=== PATIENT | male | born 1980 | race Caucasian/White ===

== ENCOUNTER 2021-03-06 16:49 | Outpatient (CLI) | payer BC ==
--- NOTE | 2021-03-07 11:10 | XRAY Report ---
PROCEDURE: Knee 3 View LT INDICATIONS: L KNEE PX TECHNIQUE: 3 views of the left knee(s) were acquired. COMPARISON: None. FINDINGS: Bones: No fractures or dislocations. No suspicious bony lesions. Soft tissues: No joint effusion. No suspicious soft tissue calcifications. IMPRESSION: Normal left knee Reviewed by: Manan Mittal on 03/07/2021 11:08 AM PDT Approved by: Manan Mittal on 03/07/2021 11:08 AM PDT Station ID: [id number]
== END 2021-03-06 23:59 | disposition home or self-care (01) ==
LOC: DI.N 16:49
PROVIDERS: ATTEND Physician Assistant Medical
DX: M25.562 Pain in left knee (principal)

== ENCOUNTER 2021-05-03 10:01 | Outpatient (CLI) | payer OTHER ==
--- NOTE | 2021-05-03 16:42 | XRAY Report ---
PROCEDURE: Foot 3 View LT INDICATIONS: LEFT FOOT PAIN TECHNIQUE: 3 views of the foot were acquired. COMPARISON: None FINDINGS: Bones: No fractures or dislocations. No suspicious bony lesions. Mild first MTP degenerative ibarra e. Soft tissues: No tibiotalar joint effusion. Achilles tendon appears normal. IMPRESSION: Mild first MTP degenerative change. No evidence acute bony abnormality of the left foot. If clinical suspicion and/or symptoms persist, further assessment with repeat plain films or advanced imaging (e.g., CT, MRI, or bone scan) may be helpful for further assessment. Reviewed by: Blair Hughes MD on 05/03/2021 4:41 PM PDT Approved by: Blair Hughes MD on 05/03/2021 4:41 PM PDT Station ID: [id number]
== END 2021-05-03 10:02 | disposition home or self-care (01) ==
LOC: DI.N 10:01
PROVIDERS: ATTEND Physician Assistant
DX: M19.072 Primary osteoarthritis, left ankle and foot (principal)

== ENCOUNTER 2022-11-28 10:54 | Emergency (ER) | payer OTHER ==
[2022-11-28 11:23] VITALS: BP 166/115
--- OUTSIDE RECORDS SUMMARY | 2022-11-28 12:05 | EXTERNAL MEDICAL SUMMARY RPT | Continuity of Care Document ---
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 Name Role Phone Unavailable Unavailable Unavailable Lionel Sotelo, Jinny Unavailable Unavailable Medications date description facility 2022-11-27 00:00 sertraline All 2022-11-28 00:00 sertraline All 2022-11-27 00:00 sertraline All 2022-11-28 00:00 sertraline All 2022-11-27 00:00 losartan All 2022-11-28 00:00 losartan All 2022-11-27 00:00 losartan All 2022-11-28 00:00 losartan All 2022-11-27 00:00 sertraline All 2022-11-28 00:00 sertraline All 2022-11-27 00:00 sertraline All 2022-11-28 00:00 sertraline All 2022-11-27 00:00 losartan All 2022-11-28 00:00 losartan All 2022-11-27 00:00 losartan All 2022-11-28 00:00 losartan All Problems date description facility 2022-11-27 00:00 Insomnia All 2022-11-27 00:00 Insomnia, unspecified All Procedures date description facility 2022-11-27 00:00 Visit Code Hold All Vital Signs date measurement value units 2022-11-27 00:00 BMI 21.51 kg/m2 2022-11-27 00:00 BP_diastolic 112 mmHg 2022-11-27 00:00 BP_systolic 164 mmHg 2022-11-27 00:00 heart_rate 101 /min 2022-11-27 00:00 height_metric 163.83 cm 2022-11-27 00:00 height_standard 64.5 in 2022-11-27 00:00 respiration_rate 18 /min 2022-11-27 00:00 temperature_metric 37.17 C 2022-11-27 00:00 temperature_standard 98.9 F 2022-11-27 00:00 weight_metric 57.52 kg 2022-11-27 00:00 weight_standard 126.8 lb
[2022-11-28] MEDS ORDERED: LORazepam 1 MG TABLET PO STA (13:33)
--- NOTE | 2022-11-28 13:33 | ED Physician Documentation ---
History of Present Illness - Stated complaint Stated Complaint: ETOH WITHDRAW - Chief complaint Chief Complaint: General - History obtained from History obtained from: Patient, Family - Additonal information Additional information: 42-year-old gentleman presents accompanied by his mother for help with alcohol withdrawal. He was drinking heavily and got fired from his job, this was about a month ago. Subsequently he went home to the [facility] where he was drinking even more heavily. His mom got worried about it and brought him back about 3 days ago which was when his last drink was. Since then he is unable to sleep and having some tactile hallucinations. No seizure activity. While he was in the [facility] he was put on multivitamins and sertraline by a physician there. 2 days ago he missed a dose of sertraline and then took a second 1. No SI or HI. PD PAST MEDICAL HISTORY - Present Medications Home Medications: Ambulatory Orders Medication Instructions Recorded Confirmed LORazepam [Ativan] 1 mg PO TID #12 tablet 11/28/22 - Allergies Allergies/Adverse Reactions: Allergies Allergy/AdvReac Type Severity Reaction Status Date / Time No Known Drug Allergies Allergy Verified 11/28/22 11:21 PD ED PE NORMAL - Vitals Vital signs reviewed: Yes - General General: Alert and oriented X 3, Other (Hypertensive with mild tachycardia. Not overtly shaky. Calm and cooperative.) - HEENT HEENT: PERRL, EOMI, Other (Without icterus) - Cardiac Cardiac: RRR, No murmur - Respiratory Respiratory: No respiratory distress, Clear bilaterally - Abdomen Abdomen: Non tender - Back Back: No CVA TTP, No spinal TTP - Derm Derm: Normal color, Warm and dry - Extremities Extremities: No edema, No calf tenderness / cord - Neuro Neuro: Alert and oriented X 3, Normal speech Results - Vitals Vitals: Vital Signs - 24 hr 11/28/22 11:11 Temperature 36.9 C Heart Rate 107 H Respiratory 18 Rate Blood Pressure 166/115 H O2 Saturation 98 Oxygen O2 Source Room air PD Medical Decision Making - ED course ED course: 42-year-old gentleman presents with alcohol withdrawal with some tactile hallucinations and no seizure activity. His examination is otherwise unremarkable and he is accompanied by his mother. We will treat with a benzodiazepine taper. Departure - Departure Disposition: 01 Home, Self Care Clinical Impression: Alcohol withdrawal Condition: Good Record reviewed to determine appropriate education?: Yes Instructions: ED Withdrawal Alcohol Prescriptions: LORazepam [Ativan] 1 mg PO TID #12 tablet Comments: I sent your prescription electronically to [facility] in [place]. Do not drink or drive while on the medications, do not drink at all. Call your doctor to arrange a follow-up appointment, make the next available appointment. In the interim, return anytime if worse or if new symptoms develop. Forms: Activity restrictions
== END 2022-11-28 13:40 | disposition home or self-care (01) ==
LOC: ED 10:54
DX: F10.239 Alcohol dependence with withdrawal, unspecified (principal)
CPT/HCPCS: 99285; 99291; J8499

== ENCOUNTER 2022-11-28 23:10 | Outpatient (CLI) | payer SELFPAY | END 2022-11-28 23:11 | disposition critical access hospital (66) | LOC: EMS 23:10 | DX: R46.89 Other symptoms and signs involving appearance and behavior (principal); R41.0 Disorientation, unspecified; Z72.820 Sleep deprivation | CPT/HCPCS: A0425; A0429 ==

== ENCOUNTER 2022-11-28 23:27 | Inpatient (IN) | payer SELFPAY ==
--- OUTSIDE RECORDS SUMMARY | 2022-11-28 23:38 | EXTERNAL MEDICAL SUMMARY RPT | Continuity of Care Document ---
Author Name Unknown Address [address] [place] [address] Phone Organization [facility] Address [address] [place] [address] Phone Care Team Providers Care Field Health Officer Name Role Phone Unavailable Unavailable Unavailable Lionel [...]
[2022-11-29 00:04] LABS: BASOPHILS % (AUTO) 0.6 %; EOSINOPHILS # (AUTO) 0.2 10^3/uL (0.0-0.7); EOSINOPHILS % (AUTO) 3.6 %; HCT - HEMATOCRIT 36.5 % (42.0-52.0); HGB - HEMOGLOBIN 12.1 g/dL (14.0-18.0); LYMPHOCYTES # (AUTO) 1.6 10^3/uL (1.5-3.5); LYMPHOCYTES % (AUTO) 32.7 %; MEAN CORPUSCULAR HEMOGLOBIN 32.9 pg (27.0-31.0); MEAN CORPUSCULAR HGB CONC 33.2 g/dL (32.0-36.0); MEAN CORPUSCULAR VOLUME 99.2 fL (80.0-94.0); MONOCYTES # (AUTO) 0.7 10^3/uL (0.0-1.0); MONOCYTES % (AUTO) 13.8 %; NEUTROPHILS # (AUTO) 2.4 10^3/uL (1.5-6.6); NEUTROPHILS % (AUTO) 48.9 %; PLT - PLATELET COUNT 144 10^3/uL (130-450); RED BLOOD COUNT 3.68 10^6/uL (4.70-6.10); RED CELL DISTRIBUTION WIDTH 13.5 % (12.0-15.0)
[2022-11-29] MEDS ORDERED: LORazepam 2 MG/ML VIAL IVP STA ×3 (00:04→00:41)
[2022-11-29] MEDS ORDERED: THIAMINE 100 MG TABLET PO STA (00:06)
[2022-11-29] MEDS ORDERED: FOLIC ACID 1 MG TABLET PO STA (00:07)
[2022-11-29] MEDS ORDERED: MULTIVITAMIN TABLET PO STA (00:08)
[2022-11-29 00:19] LABS: ALBUMIN 3.8 g/dL (3.2-5.5); ALBUMIN/GLOBULIN RATIO 1.1 (1.0-2.2); ALKALINE PHOSPHATASE 67 IU/L (42-121); ALT ALANINE AMINOTRANSFERASE 21 IU/L (10-60); AST ASPARTATE AMINOTRANSFERASE 60 IU/L (10-42); BILIRUBIN,TOTAL 0.4 mg/dL (0.2-1.0); BUN - BLOOD UREA NITROGEN 15 mg/dL (6-20); CALCIUM 8.9 mg/dL (8.5-10.3); CARBON DIOXIDE - CO2 26 mmol/L (21-32); CHLORIDE 101 mmol/L (101-111); ETOH - ETHANOL < 5.0 mg/dL; GFR - MDRD 81 (>89); GLUCOSE 119 mg/dL (70-100); LIPASE 69 U/L (22-51); POTASSIUM 3.3 mmol/L (3.5-5.0); SODIUM 139 mmol/L (135-145); TOTAL PROTEIN 7.3 g/dL (6.7-8.2)
[2022-11-29] MEDS ORDERED: POTASSIUM CHLORIDE 20 MEQ TABLET PO STA (00:20)
--- NOTE | 2022-11-29 00:22 | ED Physician Documentation ---
History of Present Illness - Stated complaint Stated Complaint: UNABLE TO SLEEP - Chief complaint Chief Complaint: Neuro - History obtained from History obtained from: Family (Mother) - Additonal information Additional information: Patient is a 42-year-old male brought in by EMS for evaluation of worsening hallucinations this evening. He was seen earlier this afternoon by my colleague for alcohol withdrawal. He has been drinking heavily And was in the [facility]. His mother was worried about him and brought him back 3 days ago and she believes his last drink was on Thursday.Since that time he has been having difficulties with sleep as well as having some tactile hallucinations.While in the [facility] he was started on sertraline by a physician and excellently took An extra dose this week.He was also started on multivitamins. When he was seen this afternoon he was started on a p.o. Ativan and was reportedly stable for outpatient management of his withdrawal symptoms. However this evening the mother states that his hallucinations have been worse as he keeps talking to himself and is confused.She has given him additional doses of p.o. Ativan without any change in behaviors and thus called 911. Upon arrival with EMS he ambulated from the ambulance bay door into room 8. Review of Systems Unable to obtain: AMS PD PAST MEDICAL HISTORY - Present Medications Home Medications: Ambulatory Orders Medication Instructions Recorded Confirmed LORazepam [Ativan] 1 mg PO TID #12 tablet 11/28/22 11/28/22 - Allergies Allergies/Adverse Reactions: Allergies Allergy/AdvReac Type Severity Reaction Status Date / Time No Known Drug Allergies Allergy Verified 11/28/22 11:21 - Social History Does the pt smoke?: Yes Smoking Status: Current every day smoker PD ED PE NORMAL - General General: No acute distress, Well developed/nourished. No: Alert and oriented X 3 (Alert and oriented to person and time) - HEENT HEENT: Atraumatic - Neck Neck: Supple, no meningeal sign - Cardiac Cardiac: No murmur, Other (Tachycardic, regular rhythm) - Respiratory Respiratory: No respiratory distress, Clear bilaterally - Abdomen Abdomen: Soft, Non tender, Non distended - Derm Derm: Warm and dry - Extremities Extremities: Other (Tremulous) - Neuro Neuro: No motor deficit, Normal speech. No: Alert and oriented X 3 (Alert and oriented to person and time) Results - Vitals Vitals: Vital Signs - 24 hr 11/28/22 11/29/22 23:33 01:30 Temperature 37.1 C Heart Rate 105 H 98 Respiratory 16 23 Rate Blood Pressure 129/97 H 136/97 H O2 Saturation 98 98 Oxygen O2 Source Room air - Labs Labs: Laboratory Tests 11/28/22 11/28/22 11/28/22 23:56 23:56 23:56 WBC 5.0 RBC 3.68 L Hgb 12.1 L Hct 36.5 L MCV 99.2 H MCH 32.9 H MCHC 33.2 RDW 13.5 Plt Count 144 MPV 10.0 Neut # (Auto) 2.4 Lymph # (Auto) 1.6 [place] # (Auto) 0.7 Eos # (Auto) 0.2 Baso # (Auto) 0.0 Absolute Nucleated RBC 0.00 Nucleated RBC % 0.0 Sodium 139 Potassium 3.3 L Chloride 101 Carbon Dioxide 26 Anion Gap 12.0 BUN 15 Creatinine 1.0 Estimated GFR (MDRD) 81 L Glucose 119 H Calcium 8.9 Total Bilirubin 0.4 AST 60 H ALT 21 Alkaline Phosphatase 67 Ammonia 42.5 H Total Protein 7.3 Albumin 3.8 Globulin 3.5 Albumin/Globulin Ratio 1.1 Lipase 69 H Ethyl Alcohol < 5.0 PD Medical Decision Making - ED course Complexity details: reviewed results, re-evaluated patient, d/w family ED course: Patient is a 42-year-old male presenting for evaluation with abnormal behaviors that have been worsening this evening. He has a history of heavy alcohol use and stopped a few days ago. He was seen earlier today in the emergency department with symptoms consistent with alcohol withdrawal and started on Ativan at home. Patient has been receiving p.o. Ativan at home but despite this his hallucinations have worsened and he has become more confused. He was ambulatory into the emergency department with EMS. He knows his name and the month and the year but is not able to give me very good details regarding current events and often appears confused as to where he is. He does appear to be hallucinating and his symptoms are concerning for withdrawal. I do not see signs of trauma and he has no focal deficits to suggest an intracranial process.CBC, chemistry, EtOH and ammonia levels were obtained and reviewed. Ammonia level is slightly elevated however I do not think His presentation is as consistent with hepatic encephalopathy as it is with severe alcohol withdrawal. Patient CIWA score initially is 35. It did go as high as 44 in the emergency department. He was given 3 separate doses of IV Ativan 2 mg.Given the severity of his symptoms I do feel he would benefit from inpatient treatment for withdrawal. I discussed the case with the overnight tele hospitalist who has seen the patient and has agreed to admit the patient for further management.He has been protecting his airway since receiving 6 mg of Ativan.Heart rate and blood pressure have also been stable.He does not appear septic. 1221 - Mother remains at the bedside. Patient has received 2 mg of IV Ativan. He currently is in the bed acting as if he is driving a car. 1244 - Patient needing frequent reminders that he is in a hospital. His mother is at the bedside and he does Recognize her. Patient is scared because he believes that there are ghosts in the room. Security and other staff members are there to reassure the patient. 1251 - D/W Tele hospitalist, Dr. Rordiguez. - Critical Care Time(min): 31 Time Includes: Direct patient care, Review records, Reassess patient, Document care Data interpretation: Labs Departure - Departure Disposition: 66 [facility] DC/Xfer Clinical Impression: Alcohol withdrawal Condition: Serious
--- NOTE | 2022-11-29 02:21 | HISTORY & PHYSICAL EXAMINATION ---
Chief Complaint - Chief Complaint Chief Complaint: hallucinations, alcohol withdrawal History of Present Illness - Admitted From Admitted From:: home - History Obtained From History obtained from: patient's mother and ER provider Exam Limitations: telemedicine - History of Present Illness HPI Comment/Other: Mr Cruz is a 42 yo M with hx alcohol dependence. Presents to ER with c/o hallucinations. He had been seen earlier yesterday in ER for alcohol withdrawal symptoms and was stable for outpatient management andn discharge home. His mother gave him doses of PO Ativan as prescribed however pt remained confused and worsening hallucinations, seeing ghosts, so they returned to ER for further evaluation. Suspected last drink was approx 4 days ago on Thursday. He and his mother returned from [facility] on ThursdayNovember 25, he promised her that he would quit drinking when they left the [facility] and has not drank since they've been back. Pt underwent alcohol withdrawal in 2016 in the [facility], was in the hospital for 1-2 weeks at that time, his mother states he was in ICU but unsure if he was intubated. History - Past Medical History Cardiovascular: reports: None Respiratory: reports: None Neuro: reports: None Endocrine/Autoimmune: reports: None GI: reports: None Meds/Allgy - Home Medications Home Medications: Ambulatory Orders Medication Instructions Recorded Confirmed LORazepam [Ativan] 1 mg PO TID #12 tablet 11/28/22 11/28/22 - Allergies Allergies/Adverse Reactions: Allergies Allergy/AdvReac Type Severity Reaction Status Date / Time No Known Drug Allergies Allergy Verified 11/28/22 11:21 Review of Systems - All Other Systems All Other Systems: reports: Other (unable to obtain ROS, pt is asleep/sedated) Exam - Vital Signs Reviewed Vital Signs: Yes Vital Signs: Vital Signs x48h Temp Pulse Resp BP Pulse Ox 11/28/22 23:33 37.1 C 105 H 16 129/97 H 98 - Physical Exam General Appearance: positive: No acute distress, Other (asleep) Neck: positive: Nml inspection Respiratory: positive: No respiratory distress Skin: positive: Color nml, No rash, Warm Neurologic/Psychiatric: positive: Other (unable to assess, pt is somnolent after receiving IV Ativan) Conclusion/Plan - Lab Results Lab results reviewed: Yes Fish Bones: 11/28/22 23:56 11/28/22 23:56 - Other Other Results/Comments: Assessment/Plan: Acute metabolic encephalopathy secondary to alcohol withdrawal syndrome -Last drink ~4 days ago -Pt is somnolent after receiving total 6 mg IV Ativan in ER -Continue CIWA protocol -IV fluids -Pt with hallucinations, impending DTs, monitor in ICU for now - consult for cessation counseling when medically stable Hypokalemia -Supplementation received in ER -Trend labs, f/u mag/phos Full code DVT ppx: Lovenox sc Telemedicine Consult Details - Provider Location & Consult Time Telemedicine consultation conducted via videoconferencing?: Yes List names and roles of persons who participated in consult:: Miguel Angel DUPREE MD, RN at bedside, patient's mother at bedside Telemedicine provider location:: [place]
[2022-11-29] MEDS ORDERED: ONDANSETRON 4 MG/2 ML VIAL IVP PRN (02:28)
[2022-11-29] MEDS ORDERED: SODIUM CHLORIDE FLUSH 0.9% 10 ML SYRINGE IVP PRN (02:28)
[2022-11-29] MEDS ORDERED: LORazepam 2 MG/ML VIAL IVP PRN (02:30)
[2022-11-29] MEDS: SODIUM CHLORIDE 0.9% 1,000 ML IV SCH ×3 (04:30→14:09)
[2022-11-29 05:06] LABS: BUN - BLOOD UREA NITROGEN 15 mg/dL (6-20); CALCIUM 8.6 mg/dL (8.5-10.3); CARBON DIOXIDE - CO2 26 mmol/L (21-32); CHLORIDE 102 mmol/L (101-111); CREATININE 0.8 mg/dL (0.6-1.2); GFR - MDRD 105 (>89); GLUCOSE 111 mg/dL (70-100); IONIZED CALCIUM IF INDICATED NO; MAGNESIUM 1.6 mg/dL (1.7-2.8); PHOSPHORUS 3.7 mg/dL (2.5-4.6); POTASSIUM 3.5 mmol/L (3.5-5.0); SODIUM 138 mmol/L (135-145)
[2022-11-29] MEDS ORDERED: MAGNESIUM SULFATE 2 GRAM 2 GM/50 ML BAG IV ONE (05:25)
[2022-11-29] MEDS: POTASSIUM CHLOR 10 MEQ/100 ML 10 MEQ/100 ML BAG IV SCH ×6 (06:47→18:17)
[2022-11-29] MEDS: SODIUM CHLORIDE FLUSH 0.9% 10 ML SYRINGE IVP SCH ×2 (08:25→16:24)
[2022-11-29] MEDS: ENOXAPARIN 40 MG/0.4 ML SYRINGE SUBQ SCH (08:25)
[2022-11-29] MEDS ORDERED: THIAMINE 100 MG TABLET PO SCH (09:00)
[2022-11-29] MEDS: THIAMINE INJ 100 MG in SODIUM CHLORIDE 0.9% 50 ML IV SCH (09:21)
--- NOTE | 2022-11-29 10:22 | PHARMACY PROGRESS NOTE ---
- Best Possible Medication History Admit Date and Time: 11/29/22 0228 Processed by: Pharmacy Medication History completed: Yes Patient Interview: Completed Secondary Source(s): Other family member (spoke to mother.), Pharmacy records As the person ultimately responsible for medication therapy, providers are able to order a medication from an existing home medication list in [facility] via the "Reconcile Routine" prior to Confirmation of that medication by business support manager. Such practice is discouraged except when the physician, in their clinical judgment, deems that a medical need exists for a medication without regard to previous use.
[2022-11-29] MEDS: POTASSIUM CHLORIDE 20 MEQ TABLET PO SCH (23:03)
[2022-11-30] MEDS: SODIUM CHLORIDE 0.9% 1,000 ML IV SCH (02:18)
[2022-11-30] MEDS: POTASSIUM CHLORIDE 20 MEQ TABLET PO SCH (04:19)
[2022-11-30] MEDS: SODIUM CHLORIDE FLUSH 0.9% 10 ML SYRINGE IVP SCH ×3 (04:20→17:13)
[2022-11-30 05:11] LABS: CALCIUM, IONIZED 1.06 mmol/L (1.15-1.33); VBG PH 7.424 (7.31-7.41)
[2022-11-30 05:20] LABS: ALBUMIN 3.3 g/dL (3.2-5.5); BILIRUBIN,TOTAL 0.7 mg/dL (0.2-1.0); CALCIUM 7.7 mg/dL (8.5-10.3); CREATININE 0.5 mg/dL (0.6-1.2); PHOSPHORUS 2.6 mg/dL (2.5-4.6); POTASSIUM 3.6 mmol/L (3.5-5.0); TOTAL PROTEIN 6.6 g/dL (6.7-8.2)
[2022-11-30] MEDS: CALCIUM CARBONATE CHEW 500 MG TABLET PO SCH ×2 (06:48→08:13)
[2022-11-30] MEDS ORDERED: POTASSIUM CHLORIDE 20 MEQ TABLET PO ONE (08:00)
[2022-11-30] MEDS: ENOXAPARIN 40 MG/0.4 ML SYRINGE SUBQ SCH (08:13)
[2022-11-30] MEDS: THIAMINE INJ 100 MG in SODIUM CHLORIDE 0.9% 50 ML IV SCH (08:14)
[2022-11-30] MEDS: chlordiazePOXIDE 5 MG CAPSULE PO SCH ×3 (12:18→23:43)
--- NOTE | 2022-11-30 13:04 | PROVIDER PROGRESS NOTE ---
Subjective - Subjective Pt reports feeling: Improved (He is now scoring 7 on CIWA compared to 44 in the ED) Objective - Vital Signs/Intake & Output Vital Signs: Vital Signs Temp Pulse Resp BP Pulse Ox 11/30/22 12:00 36.8 C 75 16 125/80 100 11/30/22 11:00 61 21 125/57 L 100 11/30/22 10:00 76 19 126/82 H 99 Intake & Output: Intake & Output 11/27/22 11/28/22 11/29/22 11/30/22 23:59 23:59 23:59 23:59 Intake Total 2434.333 2182.667 Output Total 725 1550 Balance 1709.333 632.667 - Objective General Appearance: positive: No acute distress, Alert Eyes Bilateral: positive: Normal inspection, EOMI ENT: positive: No signs of dehydration Neck: positive: Nml inspection, No JVD Respiratory: positive: No respiratory distress Cardiovascular: positive: Regular rate & rhythm Abdomen: positive: Non-tender, No distention Skin: positive: Warm, Dry Extremities: positive: Non-tender, No pedal edema Neurologic/Psychiatric: positive: Oriented x3, Other (No tremor, no nystagmus) - Lab Results Fish Bones: 11/28/22 23:56 11/30/22 04:30 Other Labs: Lab Results x24hrs 11/30/22 11/30/22 11/29/22 Range/Units 04:30 04:30 21:05 VBG pH 7.424 H (7.31-7.41) Ionized Calcium 1.06 L (1.15-1.33) mmol/L Sodium 141 (135-145) mmol/L Potassium 3.6 3.5 (3.5-5.0) mmol/L Chloride 105 (101-111) mmol/L Carbon Dioxide 22 (21-32) mmol/L Anion Gap 14.0 H (6-13) BUN 6 (6-20) mg/dL Creatinine 0.5 L (0.6-1.2) mg/dL Estimated GFR (MDRD) 181 (>89) Glucose 98 (70-100) mg/dL Calcium 7.7 L (8.5-10.3) mg/dL Phosphorus 2.6 (2.5-4.6) mg/dL Magnesium 2.0 (1.7-2.8) mg/dL Total Bilirubin 0.7 (0.2-1.0) mg/dL AST 77 H (10-42) IU/L ALT 25 (10-60) IU/L Alkaline Phosphatase 54 (42-121) IU/L Total Protein 6.6 L (6.7-8.2) g/dL Albumin 3.3 (3.2-5.5) g/dL Globulin 3.3 (2.1-4.2) g/dL Albumin/Globulin Ratio 1.0 (1.0-2.2) 11/29/22 Range/Units 16:02 VBG pH (7.31-7.41) Ionized Calcium (1.15-1.33) mmol/L Sodium (135-145) mmol/L Potassium 3.6 (3.5-5.0) mmol/L Chloride (101-111) mmol/L Carbon Dioxide (21-32) mmol/L Anion Gap (6-13) BUN (6-20) mg/dL Creatinine (0.6-1.2) mg/dL Estimated GFR (MDRD) (>89) Glucose (70-100) mg/dL Calcium (8.5-10.3) mg/dL Phosphorus (2.5-4.6) mg/dL Magnesium (1.7-2.8) mg/dL Total Bilirubin (0.2-1.0) mg/dL AST (10-42) IU/L ALT (10-60) IU/L Alkaline Phosphatase (42-121) IU/L Total Protein (6.7-8.2) g/dL Albumin (3.2-5.5) g/dL Globulin (2.1-4.2) g/dL Albumin/Globulin Ratio (1.0-2.2) Assessment/Plan - Problem List (1) Alcohol abuse with withdrawal Impression: Patient was admitted to the ICU because of scoring very high on CIWA protocol, 44 when he was in the ED. He has been getting IV Ativan on the CIWA protocol Yesterday he was somnolent. No diet was even started until today His AST is greater than ALT but he has normal platelets and INR, no evidence of ascites on exam Plan: We will advance his diet to a regular diet. His thiamine and multivitamin can be oral treatment We will begin Librium p.o. today at a moderate dose, now that he is awake. Will assess today to see if the Librium dose is adequate to discharge him home on, to continue to taper as he detoxes. He needs to be seen by social work to be cleared and to answer any questions regarding resources for alcohol abuse. (There is no social director in the hospital today, Annelise). He will be transferred out of the ICU to [facility] status today. No telemetry is needed. I anticipate he will be discharged tomorrow, after seen by JUDITH.
[2022-12-01] MEDS: SODIUM CHLORIDE FLUSH 0.9% 10 ML SYRINGE IVP SCH ×2 (00:14→09:00)
[2022-12-01 05:47] LABS: CALCIUM, IONIZED 1.13 mmol/L (1.15-1.33); VBG PH 7.38 (7.31-7.41)
[2022-12-01 06:01] LABS: ALBUMIN 3.8 g/dL (3.2-5.5); BILIRUBIN,TOTAL 0.4 mg/dL (0.2-1.0); CREATININE 0.8 mg/dL (0.6-1.2); MAGNESIUM 2.1 mg/dL (1.7-2.8); PHOSPHORUS 3.2 mg/dL (2.5-4.6); POTASSIUM 3.8 mmol/L (3.5-5.0); TOTAL PROTEIN 7.5 g/dL (6.7-8.2)
[2022-12-01] MEDS: chlordiazePOXIDE 5 MG CAPSULE PO SCH ×2 (06:09→13:22)
[2022-12-01] MEDS ORDERED: THIAMINE 100 MG TABLET PO SCH (09:00)
[2022-12-01] MEDS: ENOXAPARIN 40 MG/0.4 ML SYRINGE SUBQ SCH (09:00)
--- NOTE | 2022-12-01 13:29 | Discharge Plan ---
Discharge Plan Problem Reviewed?: Yes Disposition: Home, Self Care Condition: Stable Prescriptions: Losartan [Cozaar] 50 mg PO DAILY #30 tablet Thiamine [Vitamin B-1] 100 mg PO DAILY #30 tab Diet: Regular Activity Restrictions: Activity as Tolerated Shower Restrictions: No Driving Restrictions: Yes (No driving if you resume drinking) Health Concerns: Unfortunately you are having a lot of family stress back in the [facility]. You are from your and this is caused you to have depression. You are drinking to relieve the pain and anxiety from the depression. This is the second time you have gone through alcohol withdrawal. You do get shakes, tremors, sweats, and hallucinations. But this time around was worse than the last time. This is your third day of being in the hospital and you no longer have tremors, fast heart rate, but your blood pressure still a little on the high side. You tell us that you used to take a blood pressure pill back in the [facility] and have not done so for a bit. We do think that you need to take a blood pressure pill and have resumed the blood pressure pill you used to take, losartan. Plan of Treatment: 1. You cannot resume drinking. The public health social worker here has given you a list of places you could possibly go to if you need help. 2. Alcohol abuse does cause you to have anemia. So we are recommending that you take a multivitamin with folic acid as well as thiamine on a regular basis. The thiamine prescription was called into [facility] pharmacy. 3. As we stated above, you have high blood pressure. Please take losartan 50 mg daily. It is a pill that you take once a day. 4. [place] a [place]. You need your blood pressure checked to make sure that you are okay on the Cozaar. You will also need a refill on the Cozaar. I have only given you 30 days. Care Goals: To stay clean and sober To get your blood pressure under control To recover from the grief and loss of the stress in your family Assessment: Patient is alert, oriented, without tremulousness. Speech is normal. Gait is normal. He promises to follow through with help No Smoking: If you smoke, Please STOP! Call for help.
--- NOTE | 2022-12-01 13:35 | DISCHARGE SUMMARY ---
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 Presents to ER with c/o hallucinations. He had been seen earlier yesterday in ER for alcohol withdrawal symptoms and was stable for outpatient management andn discharge home. His mother gave him doses of PO Ativan as prescribed however pt remained confused and worsening hallucinations, seeing ghosts, so they returned to ER for further evaluation. Suspected last drink was approx 4 days ago on Thursday. He and his mother returned from [facility] on ThursdayNovember 25, he promised her that he would quit drinking when they left the [facility] and has not drank since they've been back. Pt underwent alcohol withdrawal in 2017 in the [facility], was in the hospital for 1-2 weeks at that time, his mother states he was in ICU but unsure if he was intubated. History - Past Medical History Cardiovascular: reports: None Respiratory: reports: None Neuro: reports: None Endocrine/Autoimmune: reports: None GI: reports: None Meds/Allgy - HOSPITAL COURSE Hospital Course: He was placed in the intensive care unit due to his tremors, hallucinations. However, he did not require intensive management and was well controlled with Librium 10 mg every 6 hours. He only required Ativan on his first day in the hospital. As such she was transition to MedSurg status within 24 hours. Over the course of the next 48 hours, he is hallucinations resolved. Tremulousness resolved. He remained hypertensive between 142 and as high as 157 systolic. He states that he used to have high blood pressure back in the [facility] and his administrative resources associate had him on losartan. But he has not taken it in a while. On the day of discharge patient was alert, oriented. He states that he drinks because of depression. He is very sad about separation from his and how it affected his family. So he drinks. He says that he is going to stop drinking. This is the second time he is gone through withdrawal and this time it was much worse than the first. He has met with social work and they have given him a list of opportunities to avail himself of outpatient rehab. I am discharging him on a multivitamin with folic acid, as well as thiamine 100 mg daily. I am also starting him on losartan 50 mg a day. He will need to establish himself with a primary care provider even if it is to go to the walk-in clinic to make sure his blood pressure is staying stable on Cozaar. He will need a refill. At discharge his exam is a 5 foot [place] male who is 55.5 kg. Alert, oriented. Sad. But no emotional lability. No tremulousness, no agitation. Hands are slightly sweaty. Temperature is 36.6. Heart rate 71. Blood pressure 151/97. Respirations 20. 99% on room air. No JVD. Supple neck. Lungs are clear to auscultation and percussion. Regular rate and rhythm without murmur. The abdomen has a firm abdominal wall musculature. Normal bowel sounds. Nontender. He is able to sit up, transition from sitting to standing without help. There is no ataxia no weakness. Greater than 30 minutes was spent Coordinating discharge including educating him about alcohol abuse. Depression. Encouraging him to make sure that he goes into rehab or at least seeks help from someone to talk to. And the importance of establish himself with a doctor so that he can get follow-up for his blood pressure. - ALLERGIES Allergies/Adverse Reactions: Allergies Allergy/AdvReac Type Severity Reaction Status Date / Time No Known Drug Allergies Allergy Verified 11/28/22 11:21 - MEDICATIONS Home Medications: Ambulatory Orders Medication Instructions Recorded Confirmed LORazepam [Ativan] 1 mg PO TID #12 tablet 11/28/22 11/29/22 Multivit/Iron Sulf/Folic Acid 1 tab PO DAILY 11/29/22 11/29/22 [Tab-A-Manish Multivit with Iron] Sertraline [Zoloft] 1 tab PO DAILY 11/29/22 11/29/22 Losartan [Cozaar] 50 mg PO DAILY #30 tablet 12/01/22 Thiamine [Vitamin B-1] 100 mg PO DAILY #30 tab 12/01/22 - LABS Result Diagrams: 11/28/22 23:56 12/01/22 04:25
[2022-12-01 14:10] VITALS: BP 146/104
== END 2022-12-01 14:40 | disposition home or self-care (01) | DRG 896 ==
LOC: EDUNIT# → ED 23:27 → ICU 11-29 02:28
PROVIDERS: ADMIT Student in an Organized Health Care Education/Training Program; ATTEND Specialist
DX: F10.139 Alcohol abuse with withdrawal, unspecified (principal); G93.41 Metabolic encephalopathy; R44.2 Other hallucinations; I10 Essential (primary) hypertension; F32.9 Major depressive disorder, single episode, unspecified; E87.6 Hypokalemia
CPT/HCPCS: 36415; 80048; 80053; 80320; 82140; 82330; 83690; 83735; 84100; 84132; 85025; 85610; 87150; 96374; 96375; A9270; J1650; J2060; J3411; J7040

== ENCOUNTER 2024-02-16 10:41 | Observation (INO) | payer SELFPAY ==
--- NOTE | 2024-02-16 11:15 | ED Physician Documentation ---
History of Present Illness - Stated complaint Stated Complaint: ETOH - Chief complaint Chief Complaint: MHE - History obtained from History obtained from: Patient, Family - Additonal information Additional information: 43-year-old male presents with his aunt today due to concerns for alcohol withdrawal. The patient has a history of heavy alcohol consumption, and stopped drinking 7 days ago. Prior to that he was drinking at least a pint of whiskey daily if not more. He had been drinking quite heavily for several months after losing his job and falling into depression. His aunt who he lives with states that last couple of days he started to have increasing shaking tremors and hallucinations stating that he has worms all over his body. He has been fidgety and agitated at times. Has not had any hematemesis or other vomiting, no diarrhea hematochezia, denies any chest pain or difficulty breathing. Patient has required hospitalization for alcohol-related issues in the past, no prior withdrawal seizures. History obtained somewhat from patient as well as his aunt who is at the bedside. Review of Systems Unable to obtain: Confused PD PAST MEDICAL HISTORY - Past Medical History Past Medical History: Yes Cardiovascular: None Respiratory: None Neuro: None Endocrine/Autoimmune: None GI: None - Past Surgical History Past Surgical History: No - Present Medications Home Medications: Ambulatory Orders Medication Instructions Recorded Confirmed Losartan [Cozaar] 50 mg PO DAILY #30 tablet 12/01/22 - Allergies Allergies/Adverse Reactions: Allergies Allergy/AdvReac Type Severity Reaction Status Date / Time No Known Drug Allergies Allergy Verified 02/16/24 10:53 - Social History Does the pt smoke?: Yes Smoking Status: Current every day smoker Does the pt drink ETOH?: Yes ETOH Use: Liquor Does the pt have substance abuse?: No - POLST Patient has POLST: No PD ED PE NORMAL - Vitals Vital signs reviewed: Yes - General General: Well developed/nourished, Other (Fidgeting, tremulous, oriented to self.) - HEENT HEENT: Atraumatic, PERRL, EOMI, Moist mucous membranes - Neck Neck: Supple, no meningeal sign, No JVD - Cardiac Cardiac: RRR, No murmur, No gallop, No rub - Respiratory Respiratory: No respiratory distress, Clear bilaterally - Abdomen Abdomen: Normal bowel sounds, Soft, Non tender, Non distended - Derm Derm: Normal color, Warm and dry, No rash - Neuro Neuro: No motor deficit, No sensory deficit, Normal speech Eye Opening: Spontaneous Motor: Obeys Commands Verbal: Confused GCS Score: 14 - Free text exam Free text exam: Patient Extremely tremulous, fidgeting, picking at monitoring wires, and stating that he has worms crawling all over his legs. Results - Vitals Vitals: Vital Signs - 24 hr 02/16/24 02/16/24 02/16/24 10:46 11:23 11:30 Temperature 36.0 C L Heart Rate 99 89 85 Respiratory 20 22 23 Rate Blood Pressure 144/103 H 154/103 H 154/103 H O2 Saturation 100 96 99 02/16/24 12:00 Temperature Heart Rate 85 Respiratory 22 Rate Blood Pressure 135/113 H O2 Saturation 100 Oxygen O2 Source Room air - Labs Labs: Laboratory Tests 02/16/24 02/16/24 02/16/24 11:24 11:24 11:24 WBC 6.1 RBC 4.00 L Hgb 12.8 L Hct 39.1 L MCV 97.8 H MCH 32.0 H MCHC 32.7 RDW 14.6 Plt Count 131 MPV 11.1 Neut # (Auto) 4.5 Lymph # (Auto) 0.7 L Scott # (Auto) 0.8 Eos # (Auto) 0.0 Baso # (Auto) 0.1 Absolute Nucleated RBC 0.00 Nucleated RBC % 0.0 PT 12.3 INR 1.1 Sodium 134 L Potassium 3.6 Chloride 99 L Carbon Dioxide 23 Anion Gap 12.0 BUN 20 Creatinine 0.8 Estimated GFR (MDRD) 105 Glucose 117 H Calcium 10.2 Total Bilirubin 1.0 AST 116 H ALT 25 Alkaline Phosphatase 76 Total Protein 8.5 Albumin 5.0 Globulin 3.5 Albumin/Globulin Ratio 1.4 Lipase 50 Ethyl Alcohol < 10.0 PD Medical Decision Making - ED course Complexity details: reviewed old records, reviewed results, re-evaluated patient, considered differential, d/w patient, d/w family ED course: 43-year-old male with a history of alcohol use disorder and prior admit for alcohol withdrawal presents with alcohol withdrawal symptoms. The patient stopped drinking 7 days ago and developed tremors and confusion the last couple of days, worsening today. He was brought in by his aunt today. On exam, patient is extremely tremulous, confused, fidgety, and having visual and tactile hallucinations. He was given diazepam with no significant change in his symptoms. Healso received 1l ns and thiamine. Labs were obtained which are largely stable, alcohol level negative, urinalysis pending. I have recommended the patient be admitted for alcohol withdrawal with delirium. I spoke with the hospitalist who is kindly accepted this patient. Departure - Departure Disposition: 66 [facility] DC/Xfer Clinical Impression: Alcohol withdrawal syndrome Qualifiers: Complication of substance-induced condition: with delirium Qualified Code(s): F10.931 - Alcohol use, unspecified with withdrawal delirium Forms: PCP List
[2024-02-16] MEDS: diazePAM INJ 5 MG/ML SYRINGE IVP STA ×2 (11:34→12:05)
[2024-02-16] MEDS: SODIUM CHLORIDE 0.9% 1,000 ML IV STA (11:34)
[2024-02-16 11:36] LABS: BASOPHILS # (AUTO) 0.1 10^3/uL (0.0-0.1); EOSINOPHILS % (AUTO) 0.7 %; HCT - HEMATOCRIT 39.1 % (42.0-52.0); HGB - HEMOGLOBIN 12.8 g/dL (14.0-18.0); LYMPHOCYTES # (AUTO) 0.7 10^3/uL (1.5-3.5); LYMPHOCYTES % (AUTO) 10.9 %; MEAN CORPUSCULAR HGB CONC 32.7 g/dL (32.0-36.0); MEAN CORPUSCULAR VOLUME 97.8 fL (80.0-94.0); MEAN PLATELET VOLUME 11.1 fL (7.4-11.4); MONOCYTES # (AUTO) 0.8 10^3/uL (0.0-1.0); MONOCYTES % (AUTO) 13.4 %; NEUTROPHILS # (AUTO) 4.5 10^3/uL (1.5-6.6); NEUTROPHILS % (AUTO) 73.3 %; PLT - PLATELET COUNT 131 10^3/uL (130-450); RED CELL DISTRIBUTION WIDTH 14.6 % (12.0-15.0); WHITE BLOOD COUNT 6.1 x10^3/uL (4.8-10.8)
[2024-02-16 11:46] LABS: INR 1.1 (0.8-1.2); PT - PROTHROMBIN TIME 12.3 secs (9.9-12.6)
[2024-02-16] MEDS: THIAMINE INJ 100 MG in SODIUM CHLORIDE 0.9% 50 ML IV STA (11:46)
[2024-02-16 11:49] LABS: ALBUMIN/GLOBULIN RATIO 1.4 (1.0-2.2); ALKALINE PHOSPHATASE 76 IU/L (42-121); ALT ALANINE AMINOTRANSFERASE 25 IU/L (10-60); AST ASPARTATE AMINOTRANSFERASE 116 IU/L (10-42); BUN - BLOOD UREA NITROGEN 20 mg/dL (6-20); CALCIUM 10.2 mg/dL (8.5-10.3); CARBON DIOXIDE - CO2 23 mmol/L (21-32); CHLORIDE 99 mmol/L (101-111); CREATININE 0.8 mg/dL (0.6-1.3); ETOH - ETHANOL < 10.0 mg/dL; GFR - MDRD 105 (>89); GLUCOSE 117 mg/dL (74-104); LIPASE 50 U/L (11-82); POTASSIUM 3.6 mmol/L (3.5-4.5); SODIUM 134 mmol/L (135-145); TOTAL PROTEIN 8.5 g/dL (6.4-8.9)
[2024-02-16] MEDS: LORazepam 2 MG/ML VIAL IVP STA (11:57)
[2024-02-16] MEDS ORDERED: ONDANSETRON ODT 4 MG TABLET TL PRN (12:21)
[2024-02-16] MEDS ORDERED: ACETAMINOPHEN 325 MG TABLET PO PRN (12:21)
[2024-02-16 12:30] LABS: BILIRUBIN,URINE NEGATIVE (NEGATIVE); GLUCOSE, URINE (UA) NEGATIVE (NEGATIVE); KETONES,URINE (UA) NEGATIVE (NEGATIVE); LEUKOCYTE ESTERASE, URINE NEGATIVE (NEGATIVE); NITRITE,URINE NEGATIVE (NEGATIVE); OCCULT BLOOD,URINE NEGATIVE (NEGATIVE); PH,URINE 6.5 PH (5.0-7.5); PROTEIN,URINE 30 mg/dL (NEGATIVE); UROBILINOGEN,URINE 0.2 (NORMAL) E.U./dL (NORMAL)
--- NOTE | 2024-02-16 12:30 | HISTORY & PHYSICAL EXAMINATION ---
Chief Complaint - Chief Complaint Chief Complaint: alcohol withdrawal History of Present Illness - Admitted From Admitted From:: ED - History Obtained From Records Reviewed: [place] chart, patient interview. History obtained from: Patient - History of Present Illness HPI Comment/Other: 43-year-old male with a past history of alcohol withdrawal presents to the emergency department with same today. He has a history of drinking and has been terminated from several jobs for complaints related to his drinking. It has been 5 days since his last drink. He usually relapses when he goes to the [facility] and he has recently traveled home to see family in the [facility]. He is brought to the ED today by his aunt who he lives with. He recognizes that he is in alcohol withdrawal and is asking for help. He does not desire to continue to drink. He has no complaints other than tremulousness and hallucinations. History - Past Medical History Cardiovascular: reports: None, Hypertension Respiratory: reports: None Neuro: reports: None Endocrine/Autoimmune: reports: None GI: reports: None. denies: GERD, Esophageal varices, GI bleed, Ulcers : reports: None HEENT: reports: None Psych: reports: Depression Musculoskeletal: reports: None Derm: reports: None MRSA Hx?: No - Family & Social History Family History: Mother: Alive and Well (unknown health hx), Father: , Cancer (colon cancer at age 62) Family History Comment/Other: Children age 22 and 16 live in the [facility] Living arrangement: At home Living Situation: With family (lives with aunt) - Substance History Use: Uses substance without health or social issues: Tobacco (1/3 ppd), Alcohol Use Issues: Delirium, Hallucinations Abuse: Recurrent use of substance despite neg consequences: Alcohol (has lost job d/t alcohol use) Abuse Issues: Anxiety Disorder Dependence: Experiences withdrawal or developed tolerances: Alcohol Tobacco Details: Cigarettes - POLST Patient has POLST: No POLST Status: Full Code Meds/Allgy - Home Medications Home Medications: Ambulatory Orders Medication Instructions Recorded Confirmed Losartan [Cozaar] 50 mg PO DAILY #30 tablet 12/01/22 02/16/24 - Allergies Allergies/Adverse Reactions: Allergies Allergy/AdvReac Type Severity Reaction Status Date / Time No Known Drug Allergies Allergy Verified 02/16/24 10:53 Review of Systems - Constitutional Constitutional: reports: Fever, Malaise, Poor appetite. denies: Fatigue - Eyes Eyes: denies: Pain - Ears, Nose & Throat Ears, Nose & Throat: denies: Vertigo - Cardiovascular Cariovascular: denies: Irregular heart rate, Palpitations, Chest pain - Respiratory Respiratory: denies: Cough, Sputum production - Gastrointestinal Gastrointestinal: denies: Abdominal pain, Diarrhea, Change in bowel habits - Genitourinary Genitourinary: denies: Dysuria - Musculoskeletal Musculoskeletal: denies: Muscle pain - Integumentary Integumentary: denies: Rash - Neurological Neurological: denies: General weakness, Focal weakness, Headache, Dizziness - Psychiatric Psychiatric: denies: Anxiety, Suicidal - Hematologic/Lymphatic Hematologic/Lymphatic: denies: Bruising Prior Level of Functionality: independent Exam - Vital Signs Vital Signs: Vital Signs x48h Temp Pulse Resp BP Pulse Ox 02/16/24 12:00 85 22 135/113 H 100 02/16/24 11:30 85 23 154/103 H 99 02/16/24 11:23 89 22 154/103 H 96 02/16/24 10:46 36.0 C L 99 20 144/103 H 100 - Physical Exam General Appearance: positive: No acute distress, Alert Eyes Bilateral: positive: Normal inspection ENT: positive: ENT inspection nml Neck: positive: Nml inspection Respiratory: positive: Chest non-tender, Breath sounds nml Cardiovascular: positive: Regular rate & rhythm Abdomen: positive: Non-tender Back: positive: Nml inspection, Other (sebaceous cyst, not infected or inflammed right posterior shoulder) Extremities: positive: Non-tender, No pedal edema Neurologic/Psychiatric: positive: Oriented x3, Other (figets with pulse ox, picking at leads, hands are tremulous) Conclusion/Plan - Problem List (1) Alcohol withdrawal syndrome Conclusion/Plan: Tremulous with hallucinations. CIWA score in the emergency department is up to 23. He has been hypertensive up to 150/94. This is very similar to his presentation in November 2022 after similar circumstances. Has been given diazepam in the ED. His hallucinations have decreased but he remains tremulous. He is alert and oriented to person place and time he is also oriented to situation. I have ordered treatment of CIWA scores with IV lorazepam. Patient is being treated in the ICU for excellent nursing care and frequent reassessments. He has very mild electrolyte abnormalities with a sodium of 134 and a chloride of 99. We will check electrolyte panel again in the morning. Banana bag was ordered for vitamin supplementation. His CBC is overall unremarkable. Qualifiers: Complication of substance-induced condition: with delirium Qualified Code(s): F10.931 - Alcohol use, unspecified with withdrawal delirium (2) Hypertension Conclusion/Plan: patient is prescribed losartan 50 mg a day as an outpatient. He is not compliant with his medication. Blood pressure up to 150 systolic in the emergency department. Will reinstitute home medications. (3) Hypomagnesemia Conclusion/Plan: 1.6 at admit. repletion with 2 gm mag sulfate ordered. bienvenido level in AM. (4) Tobacco abuse Conclusion/Plan: 1/3 ppd for years. no interest in quitting. Will school counselor on this when mental status improves. - Lab Results Fish Bones: 02/16/24 11:24 02/16/24 11:24 Core Measures - Anticipated LOS I expect patient to be DC'd or transferred within 96 hours.: Yes - Issues Hospital Issues and Management Plan: alcohol withdrawal, requiring ICU level of care. will treat DT. Hopefully deescalate to po meds in AM. - DVT/VTE - Prophylaxis VTE/DVT Device ordered at admit?: Yes VTE/DVT Prophylaxis med ordered at admit?: Yes
[2024-02-16 12:37] LABS: CLARITY,URINE CLEAR (CLEAR)
[2024-02-16 12:40] LABS: AMPHETAMINE SCREEN,URINE NEGATIVE (NEGATIVE); BARBITURATE SCREEN,UR NEGATIVE (NEGATIVE); BENZODIAZEPINES SCREEN, URINE NEGATIVE (NEGATIVE); BUPRENORPHINE SCREEN, URINE NEGATIVE (NEGATIVE); COCAINE SCREEN URINE NEGATIVE (NEGATIVE); METHADONE SCREEN, URINE NEGATIVE (NEGATIVE); METHAMPHETAMINES SCREEN, URINE NEGATIVE (NEGATIVE); OPIATE SCREEN, URINE NEGATIVE (NEGATIVE); OXYCODONE SCREEN, URINE NEGATIVE (NEGATIVE); THC CANNABINOID SCREEN, URINE NEGATIVE (NEGATIVE); TRICYCLIC ANTIDEPRESSANT,URINE NEGATIVE (NEGATIVE)
[2024-02-16] MEDS ORDERED: SODIUM CHLORIDE FLUSH 0.9% 10 ML SYRINGE IVP PRN (12:51)
[2024-02-16 12:57] LABS: RBC,URINE 0-5 /HPF (0-5); SQUAMOUS EPITHELIAL CELL,UR RARE Squamous (<= Few); WBC,URINE 0-3 /HPF (0-3)
[2024-02-16 12:57] LABS: MAGNESIUM 1.6 mg/dL (1.7-2.3); PHOSPHORUS 3.9 mg/dL (2.5-5.0)
[2024-02-16 12:58] LABS: BACTERIA,URINE Rare /HPF (None Seen)
[2024-02-16] MEDS: LORazepam 1 MG TABLET PO PRN (14:26)
[2024-02-16] MEDS ORDERED: LORazepam 2 MG/ML VIAL IVP PRN (15:22)
[2024-02-16 15:46] LABS: BASOPHILS # (AUTO) 0.1 10^3/uL (0.0-0.1); EOSINOPHILS # (AUTO) 0.1 10^3/uL (0.0-0.7); HCT - HEMATOCRIT 36.6 % (42.0-52.0); HGB - HEMOGLOBIN 12.1 g/dL (14.0-18.0); LYMPHOCYTES # (AUTO) 1.1 10^3/uL (1.5-3.5); LYMPHOCYTES % (AUTO) 20.3 %; MEAN CORPUSCULAR HEMOGLOBIN 32.9 pg (27.0-31.0); MEAN CORPUSCULAR HGB CONC 33.1 g/dL (32.0-36.0); MEAN CORPUSCULAR VOLUME 99.5 fL (80.0-94.0); MEAN PLATELET VOLUME 10.8 fL (7.4-11.4); MONOCYTES # (AUTO) 0.8 10^3/uL (0.0-1.0); MONOCYTES % (AUTO) 16.1 %; NEUTROPHILS # (AUTO) 3.2 10^3/uL (1.5-6.6); NEUTROPHILS % (AUTO) 61.2 %; PLT - PLATELET COUNT 130 10^3/uL (130-450); RED BLOOD COUNT 3.68 10^6/uL (4.70-6.10); RED CELL DISTRIBUTION WIDTH 14.6 % (12.0-15.0); WHITE BLOOD COUNT 5.2 x10^3/uL (4.8-10.8)
[2024-02-16 16:04] LABS: INR 1.2 (0.8-1.2); PT - PROTHROMBIN TIME 12.8 secs (9.9-12.6)
--- NOTE | 2024-02-16 16:08 | PHARMACY PROGRESS NOTE ---
- Best Possible Medication History Admit Date and Time: 02/16/24 1221 Processed by: Pharmacy (Medication Reconciliation completed by Building Services CoordinatorTalya by calling both [facility] and [facility]) Medications reviewed in ED?: No Medication History completed: Yes Patient Interview: Completed Secondary Source(s): Pharmacy records, Insurance records As the person ultimately responsible for medication therapy, providers are able to order a medication from an existing home medication list in [facility] via the "Reconcile Routine" prior to Confirmation of that medication by ict customer support officer. Such practice is discouraged except when the physician, in their clinical judgment, deems that a medical need exists for a medication without regard to previous use.
[2024-02-16 16:12] LABS: ALBUMIN 4.2 g/dL (3.2-5.5); ALBUMIN/GLOBULIN RATIO 1.5 (1.0-2.2); BILIRUBIN,TOTAL 0.9 mg/dL (0.2-1.0); CALCIUM 9.4 mg/dL (8.5-10.3); CREATININE 0.7 mg/dL (0.6-1.3); POTASSIUM 3.5 mmol/L (3.5-4.5)
[2024-02-16] MEDS: MAGNESIUM SULFATE 2 GRAM 2 GM/50 ML BAG IV ONE (16:33)
[2024-02-16] MEDS: SODIUM CHLORIDE FLUSH 0.9% 10 ML SYRINGE IVP SCH ×2 (16:37)
[2024-02-16] MEDS: LORazepam 2 MG/ML VIAL IVP PRN (17:11)
[2024-02-16] MEDS: HALOPERIDOL 5 MG/ML VIAL IVP PRN (18:00)
[2024-02-16] MEDS: FAMOTIDINE 20 MG/2 ML VIAL IVP SCH (21:08)
[2024-02-16] MEDS: HEPARIN 5,000 UNIT/ML VIAL SUBQ SCH (21:08)
[2024-02-16] MEDS: SODIUM CHLORIDE FLUSH 0.9% 10 ML SYRINGE IVP PRN (21:08)
[2024-02-17] MEDS: DEXMEDETOMIDINE 400 MCG/100 ML 100 ML IV SCH (00:09)
[2024-02-17 04:32] LABS: CALCIUM, IONIZED 1.12 mmol/L (1.15-1.33); VBG PH 7.428 (7.31-7.41)
[2024-02-17 04:33] LABS: BASOPHILS # (AUTO) 0.1 10^3/uL (0.0-0.1); EOSINOPHILS # (AUTO) 0.2 10^3/uL (0.0-0.7); EOSINOPHILS % (AUTO) 5.5 %; HCT - HEMATOCRIT 35.5 % (42.0-52.0); HGB - HEMOGLOBIN 11.8 g/dL (14.0-18.0); LYMPHOCYTES # (AUTO) 1.1 10^3/uL (1.5-3.5); LYMPHOCYTES % (AUTO) 32.2 %; MEAN CORPUSCULAR HEMOGLOBIN 33.1 pg (27.0-31.0); MEAN CORPUSCULAR HGB CONC 33.2 g/dL (32.0-36.0); MEAN CORPUSCULAR VOLUME 99.4 fL (80.0-94.0); MONOCYTES # (AUTO) 0.8 10^3/uL (0.0-1.0); MONOCYTES % (AUTO) 21.8 %; NEUTROPHILS # (AUTO) 1.3 10^3/uL (1.5-6.6); NEUTROPHILS % (AUTO) 37.9 %; PLT - PLATELET COUNT 135 10^3/uL (130-450); RED BLOOD COUNT 3.57 10^6/uL (4.70-6.10); WHITE BLOOD COUNT 3.5 x10^3/uL (4.8-10.8)
[2024-02-17 04:54] LABS: CALCIUM 9.1 mg/dL (8.5-10.3); CREATININE 0.6 mg/dL (0.6-1.3); MAGNESIUM 2.1 mg/dL (1.7-2.3); PHOSPHORUS 3.3 mg/dL (2.5-5.0); POTASSIUM 3.5 mmol/L (3.5-4.5)
--- NOTE | 2024-02-17 08:13 | PROVIDER PROGRESS NOTE ---
Subjective - Prog Note Date Prog Note Date: 02/17/24 Prog Note Time: 08:12 - Subjective Pt reports feeling: Improved Current Medications - Current Medications Current Medications: Medications Acetaminophen (Acetaminophen 325 Mg Tablet) 650 mg PO Q4HR PRN PRN Reason: Pain 1 to 4, or Fever Dexmedetomidine/Sodium Chloride (Precedex Premix) 100 mls @ 2.744 mls/hr IV .[id number] [facility]; Protocol Last Admin: 02/17/24 00:09 Dose: Not Given Famotidine (Famotidine 20 Mg/2 Ml Vial) 20 mg IVP BID [facility] Last Admin: 02/16/24 21:08 Dose: 20 mg Heparin Sodium (Porcine) (Heparin 5,000 Unit/Ml Vial) 5,000 unit SUBQ BID [facility] Last Admin: 02/16/24 21:08 Dose: 5,000 unit Lorazepam (Lorazepam 2 Mg/Ml Vial) 1 mg IVP Q30M PRN; Protocol PRN Reason: CIWA >8 Last Admin: 02/16/24 17:50 Dose: 1 mg Losartan Potassium (Losartan 50 Mg Tablet) 50 mg PO DAILY [facility] Multivitamins 10 ml/ Thiamine HCl 100 mg/ Folic Acid 1 mg/Sodium Chloride 1,011.2 mls @ 100 mls/hr IV DAILY@1200 REJI Ondansetron HCl (Ondansetron Odt 4 Mg Tablet) 4 mg TL Q6HR PRN PRN Reason: Nausea / Vomiting Discontinued Medications Magnesium Sulfate (Magnesium Sulfate) 2 gm in 50 mls @ 50 mls/hr IV ONCE ONE Stop: 02/16/24 17:03 Last Admin: 02/16/24 17:35 Dose: Infused Haloperidol (Haloperidol 5 Mg/Ml Vial) 3 mg IVP ONCE PRN PRN Reason: Agitation Stop: 02/20/24 17:57 Last Admin: 02/16/24 18:00 Dose: 3 mg Thiamine HCl 100 mg/ Sodium (Chloride) 51 mls @ 100 mls/hr IV ONCE STA Stop: 02/16/24 11:38 Last Admin: 02/16/24 12:58 Dose: Infused Objective - Vital Signs/Intake & Output Vital Signs: Vital Signs x48h Temp Pulse Resp BP Pulse Ox 02/17/24 08:00 36.6 C 64 14 117/87 H 99 02/17/24 07:00 66 16 126/91 H 98 02/17/24 06:00 36.6 C 69 14 117/83 H 97 02/17/24 05:00 68 15 122/88 H 98 02/17/24 04:00 68 19 121/84 H 98 02/17/24 03:00 36.6 C 66 21 125/86 H 94 02/17/24 02:00 73 21 124/84 H 93 02/17/24 01:00 73 19 110/80 97 Intake & Output: Intake & Output 02/14/24 02/15/24 02/16/24 02/17/24 23:59 23:59 23:59 23:59 Intake Total 1351 0 Output Total 0 200 Balance 1351 -200 - Lab Results Fish Bones: 02/17/24 04:22 02/17/24 04:22 Other Labs: Lab Results x24hrs 02/17/24 02/17/24 02/17/24 Range/Units 04:22 04:22 04:22 WBC 3.5 L (4.8-10.8) x10^3/uL RBC 3.57 L (4.70-6.10) 10^6/uL Hgb 11.8 L (14.0-18.0) g/dL Hct 35.5 L (42.0-52.0) % MCV 99.4 H (80.0-94.0) fL MCH 33.1 H (27.0-31.0) pg MCHC 33.2 (32.0-36.0) g/dL RDW 15.0 (12.0-15.0) % Plt Count 135 (130-450) 10^3/uL MPV 10.0 (7.4-11.4) fL Neut # (Auto) 1.3 L (1.5-6.6) 10^3/uL Lymph # (Auto) 1.1 L (1.5-3.5) 10^3/uL [place] # (Auto) 0.8 (0.0-1.0) 10^3/uL Eos # (Auto) 0.2 (0.0-0.7) 10^3/uL Baso # (Auto) 0.1 (0.0-0.1) 10^3/uL Absolute Nucleated RBC 0.00 x10^3/uL Nucleated RBC % 0.0 /100WBC PT (9.9-12.6) secs INR (0.8-1.2) APTT (24.9-33.3) secs VBG pH 7.428 H (7.31-7.41) Ionized Calcium 1.12 L (1.15-1.33) mmol/L Sodium 139 (135-145) mmol/L Potassium 3.5 (3.5-4.5) mmol/L Chloride 107 (101-111) mmol/L Carbon Dioxide 25 (21-32) mmol/L Anion Gap 7.0 (6-13) BUN 14 (6-20) mg/dL Creatinine 0.6 (0.6-1.3) mg/dL Estimated GFR (MDRD) 146 (>89) Glucose 100 (74-104) mg/dL Calcium 9.1 (8.5-10.3) mg/dL Phosphorus 3.3 (2.5-5.0) mg/dL Magnesium 2.1 (1.7-2.3) mg/dL Total Bilirubin (0.2-1.0) mg/dL AST (10-42) IU/L ALT (10-60) IU/L Alkaline Phosphatase (42-121) IU/L Total Protein (6.4-8.9) g/dL Albumin (3.2-5.5) g/dL Globulin (2.1-4.2) g/dL Albumin/Globulin Ratio (1.0-2.2) Lipase (11-82) U/L Urine Color Urine Clarity (CLEAR) Urine pH (5.0-7.5) PH Ur Specific [place] (1.002-1.030) Urine Protein (NEGATIVE) mg/dL Urine Glucose (UA) (NEGATIVE) mg/dL Urine Ketones (NEGATIVE) mg/dL Urine Occult Blood (NEGATIVE) Urine Nitrite (NEGATIVE) Urine Bilirubin (NEGATIVE) Urine Urobilinogen (NORMAL) E.U./dL Ur Leukocyte Esterase (NEGATIVE) Urine RBC (0-5) /HPF Urine WBC (0-3) /HPF Ur Squamous Epith Cells (<= Few) Urine Bacteria (None Seen) /HPF Ur Microscopic Review Urine Culture Comments Nasal Screen MRSA (PCR) (NEGATIVE) Urine Opiates Screen (NEGATIVE) Ur Buprenorphine Scrn (NEGATIVE) Ur Oxycodone Screen (NEGATIVE) Urine Methadone Screen (NEGATIVE) Ur Barbiturates Screen (NEGATIVE) Ur Tricyclics Screen (NEGATIVE) Ur Phencyclidine Scrn (NEGATIVE) Ur Amphetamine Screen (NEGATIVE) U Methamphetamines Scrn (NEGATIVE) U Benzodiazepines Scrn (NEGATIVE) Urine Cocaine Screen (NEGATIVE) U Cannabinoids Screen (NEGATIVE) Ur Drug Screen Comment Ethyl Alcohol mg/dL 02/17/24 02/16/24 02/16/24 Range/Units 04:22 15:35 15:35 WBC (4.8-10.8) x10^3/uL RBC (4.70-6.10) 10^6/uL Hgb (14.0-18.0) g/dL Hct (42.0-52.0) % MCV (80.0-94.0) fL MCH (27.0-31.0) pg MCHC (32.0-36.0) g/dL RDW (12.0-15.0) % Plt Count (130-450) 10^3/uL MPV (7.4-11.4) fL Neut # (Auto) (1.5-6.6) 10^3/uL Lymph # (Auto) (1.5-3.5) 10^3/uL [place] # (Auto) (0.0-1.0) 10^3/uL Eos # (Auto) (0.0-0.7) 10^3/uL Baso # (Auto) (0.0-0.1) 10^3/uL Absolute Nucleated RBC x10^3/uL Nucleated RBC % /100WBC PT 12.8 H (9.9-12.6) secs INR 1.2 (0.8-1.2) APTT 32.1 (24.9-33.3) secs VBG pH (7.31-7.41) Ionized Calcium (1.15-1.33) mmol/L Sodium 140 (135-145) mmol/L Potassium 3.5 (3.5-4.5) mmol/L Chloride 105 (101-111) mmol/L Carbon Dioxide 28 (21-32) mmol/L Anion Gap 7.0 (6-13) BUN 18 (6-20) mg/dL Creatinine 0.7 (0.6-1.3) mg/dL Estimated GFR (MDRD) 122 (>89) Glucose 103 (74-104) mg/dL Calcium 9.4 (8.5-10.3) mg/dL Phosphorus (2.5-5.0) mg/dL Magnesium (1.7-2.3) mg/dL Total Bilirubin 0.9 (0.2-1.0) mg/dL AST 97 H (10-42) IU/L ALT 21 (10-60) IU/L Alkaline Phosphatase 65 (42-121) IU/L Total Protein 7.0 (6.4-8.9) g/dL Albumin 4.2 (3.2-5.5) g/dL Globulin 2.8 (2.1-4.2) g/dL Albumin/Globulin Ratio 1.5 (1.0-2.2) Lipase (11-82) U/L Urine Color Urine Clarity (CLEAR) Urine pH (5.0-7.5) PH Ur Specific [place] (1.002-1.030) Urine Protein (NEGATIVE) mg/dL Urine Glucose (UA) (NEGATIVE) mg/dL Urine Ketones (NEGATIVE) mg/dL Urine Occult Blood (NEGATIVE) Urine Nitrite (NEGATIVE) Urine Bilirubin (NEGATIVE) Urine Urobilinogen (NORMAL) E.U./dL Ur Leukocyte Esterase (NEGATIVE) Urine RBC (0-5) /HPF Urine WBC (0-3) /HPF Ur Squamous Epith Cells (<= Few) Urine Bacteria (None Seen) /HPF Ur Microscopic Review Urine Culture Comments Nasal Screen MRSA (PCR) (NEGATIVE) Urine Opiates Screen (NEGATIVE) Ur Buprenorphine Scrn (NEGATIVE) Ur Oxycodone Screen (NEGATIVE) Urine Methadone Screen (NEGATIVE) Ur Barbiturates Screen (NEGATIVE) Ur Tricyclics Screen (NEGATIVE) Ur Phencyclidine Scrn (NEGATIVE) Ur Amphetamine Screen (NEGATIVE) U Methamphetamines Scrn (NEGATIVE) U Benzodiazepines Scrn (NEGATIVE) Urine Cocaine Screen (NEGATIVE) U Cannabinoids Screen (NEGATIVE) Ur Drug Screen Comment Ethyl Alcohol mg/dL 02/16/24 02/16/24 02/16/24 Range/Units 15:35 13:54 12:10 WBC 5.2 (4.8-10.8) x10^3/uL RBC 3.68 L (4.70-6.10) 10^6/uL Hgb 12.1 L (14.0-18.0) g/dL Hct 36.6 L (42.0-52.0) % MCV 99.5 H (80.0-94.0) fL MCH 32.9 H (27.0-31.0) pg MCHC 33.1 (32.0-36.0) g/dL RDW 14.6 (12.0-15.0) % Plt Count 130 (130-450) 10^3/uL MPV 10.8 (7.4-11.4) fL Neut # (Auto) 3.2 (1.5-6.6) 10^3/uL Lymph # (Auto) 1.1 L (1.5-3.5) 10^3/uL [place] # (Auto) 0.8 (0.0-1.0) 10^3/uL Eos # (Auto) 0.1 (0.0-0.7) 10^3/uL Baso # (Auto) 0.1 (0.0-0.1) 10^3/uL Absolute Nucleated RBC 0.00 x10^3/uL Nucleated RBC % 0.0 /100WBC PT (9.9-12.6) secs INR (0.8-1.2) APTT (24.9-33.3) secs VBG pH (7.31-7.41) Ionized Calcium (1.15-1.33) mmol/L Sodium (135-145) mmol/L Potassium (3.5-4.5) mmol/L Chloride (101-111) mmol/L Carbon Dioxide (21-32) mmol/L Anion Gap (6-13) BUN (6-20) mg/dL Creatinine (0.6-1.3) mg/dL Estimated GFR (MDRD) (>89) Glucose (74-104) mg/dL Calcium (8.5-10.3) mg/dL Phosphorus (2.5-5.0) mg/dL Magnesium (1.7-2.3) mg/dL Total Bilirubin (0.2-1.0) mg/dL AST (10-42) IU/L ALT (10-60) IU/L Alkaline Phosphatase (42-121) IU/L Total Protein (6.4-8.9) g/dL Albumin (3.2-5.5) g/dL Globulin (2.1-4.2) g/dL Albumin/Globulin Ratio (1.0-2.2) Lipase (11-82) U/L Urine Color YELLOW Urine Clarity CLEAR (CLEAR) Urine pH 6.5 (5.0-7.5) PH Ur Specific [place] 1.020 (1.002-1.030) Urine Protein 30 H (NEGATIVE) mg/dL Urine Glucose (UA) NEGATIVE (NEGATIVE) mg/dL Urine Ketones NEGATIVE (NEGATIVE) mg/dL Urine Occult Blood NEGATIVE (NEGATIVE) Urine Nitrite NEGATIVE (NEGATIVE) Urine Bilirubin NEGATIVE (NEGATIVE) Urine Urobilinogen 0.2 (NORMAL) (NORMAL) E.U./dL Ur Leukocyte Esterase NEGATIVE (NEGATIVE) Urine RBC 0-5 (0-5) /HPF Urine WBC 0-3 (0-3) /HPF Ur Squamous Epith Cells RARE Squamous (<= Few) Urine Bacteria Rare (None Seen) /HPF Ur Microscopic Review INDICATED Urine Culture Comments NOT INDICATED Nasal Screen MRSA (PCR) NEGATIVE (NEGATIVE) Urine Opiates Screen NEGATIVE (NEGATIVE) Ur Buprenorphine Scrn NEGATIVE (NEGATIVE) Ur Oxycodone Screen NEGATIVE (NEGATIVE) Urine Methadone Screen NEGATIVE (NEGATIVE) Ur Barbiturates Screen NEGATIVE (NEGATIVE) Ur Tricyclics Screen NEGATIVE (NEGATIVE) Ur Phencyclidine Scrn NEGATIVE (NEGATIVE) Ur Amphetamine Screen NEGATIVE (NEGATIVE) U Methamphetamines Scrn NEGATIVE (NEGATIVE) U Benzodiazepines Scrn NEGATIVE (NEGATIVE) Urine Cocaine Screen NEGATIVE (NEGATIVE) U Cannabinoids Screen NEGATIVE (NEGATIVE) Ur Drug Screen Comment CUTOFF CONC BELOW: Ethyl Alcohol mg/dL 02/16/24 02/16/24 02/16/24 Range/Units 11:24 11:24 11:24 WBC (4.8-10.8) x10^3/uL RBC (4.70-6.10) 10^6/uL Hgb (14.0-18.0) g/dL Hct (42.0-52.0) % MCV (80.0-94.0) fL MCH (27.0-31.0) pg MCHC (32.0-36.0) g/dL RDW (12.0-15.0) % Plt Count (130-450) 10^3/uL MPV (7.4-11.4) fL Neut # (Auto) (1.5-6.6) 10^3/uL Lymph # (Auto) (1.5-3.5) 10^3/uL [place] # (Auto) (0.0-1.0) 10^3/uL Eos # (Auto) (0.0-0.7) 10^3/uL Baso # (Auto) (0.0-0.1) 10^3/uL Absolute Nucleated RBC x10^3/uL Nucleated RBC % /100WBC PT 12.3 (9.9-12.6) secs INR 1.1 (0.8-1.2) APTT (24.9-33.3) secs VBG pH (7.31-7.41) Ionized Calcium (1.15-1.33) mmol/L Sodium 134 L (135-145) mmol/L Potassium 3.6 (3.5-4.5) mmol/L Chloride 99 L (101-111) mmol/L Carbon Dioxide 23 (21-32) mmol/L Anion Gap 12.0 (6-13) BUN 20 (6-20) mg/dL Creatinine 0.8 (0.6-1.3) mg/dL Estimated GFR (MDRD) 105 (>89) Glucose 117 H (74-104) mg/dL Calcium 10.2 (8.5-10.3) mg/dL Phosphorus 3.9 (2.5-5.0) mg/dL Magnesium 1.6 L (1.7-2.3) mg/dL Total Bilirubin 1.0 (0.2-1.0) mg/dL AST 116 H (10-42) IU/L ALT 25 (10-60) IU/L Alkaline Phosphatase 76 (42-121) IU/L Total Protein 8.5 (6.4-8.9) g/dL Albumin 5.0 (3.2-5.5) g/dL Globulin 3.5 (2.1-4.2) g/dL Albumin/Globulin Ratio 1.4 (1.0-2.2) Lipase 50 (11-82) U/L Urine Color Urine Clarity (CLEAR) Urine pH (5.0-7.5) PH Ur Specific [place] (1.002-1.030) Urine Protein (NEGATIVE) mg/dL Urine Glucose (UA) (NEGATIVE) mg/dL Urine Ketones (NEGATIVE) mg/dL Urine Occult Blood (NEGATIVE) Urine Nitrite (NEGATIVE) Urine Bilirubin (NEGATIVE) Urine Urobilinogen (NORMAL) E.U./dL Ur Leukocyte Esterase (NEGATIVE) Urine RBC (0-5) /HPF Urine WBC (0-3) /HPF Ur Squamous Epith Cells (<= Few) Urine Bacteria (None Seen) /HPF Ur Microscopic Review Urine Culture Comments Nasal Screen MRSA (PCR) (NEGATIVE) Urine Opiates Screen (NEGATIVE) Ur Buprenorphine Scrn (NEGATIVE) Ur Oxycodone Screen (NEGATIVE) Urine Methadone Screen (NEGATIVE) Ur Barbiturates Screen (NEGATIVE) Ur Tricyclics Screen (NEGATIVE) Ur Phencyclidine Scrn (NEGATIVE) Ur Amphetamine Screen (NEGATIVE) U Methamphetamines Scrn (NEGATIVE) U Benzodiazepines Scrn (NEGATIVE) Urine Cocaine Screen (NEGATIVE) U Cannabinoids Screen (NEGATIVE) Ur Drug Screen Comment Ethyl Alcohol < 10.0 mg/dL 02/16/24 Range/Units 11:24 WBC 6.1 (4.8-10.8) x10^3/uL RBC 4.00 L (4.70-6.10) 10^6/uL Hgb 12.8 L (14.0-18.0) g/dL Hct 39.1 L (42.0-52.0) % MCV 97.8 H (80.0-94.0) fL MCH 32.0 H (27.0-31.0) pg MCHC 32.7 (32.0-36.0) g/dL RDW 14.6 (12.0-15.0) % Plt Count 131 (130-450) 10^3/uL MPV 11.1 (7.4-11.4) fL Neut # (Auto) 4.5 (1.5-6.6) 10^3/uL Lymph # (Auto) 0.7 L (1.5-3.5) 10^3/uL [place] # (Auto) 0.8 (0.0-1.0) 10^3/uL Eos # (Auto) 0.0 (0.0-0.7) 10^3/uL Baso # (Auto) 0.1 (0.0-0.1) 10^3/uL Absolute Nucleated RBC 0.00 x10^3/uL Nucleated RBC % 0.0 /100WBC PT (9.9-12.6) secs INR (0.8-1.2) APTT (24.9-33.3) secs VBG pH (7.31-7.41) Ionized Calcium (1.15-1.33) mmol/L Sodium (135-145) mmol/L Potassium (3.5-4.5) mmol/L Chloride (101-111) mmol/L Carbon Dioxide (21-32) mmol/L Anion Gap (6-13) BUN (6-20) mg/dL Creatinine (0.6-1.3) mg/dL Estimated GFR (MDRD) (>89) Glucose (74-104) mg/dL Calcium (8.5-10.3) mg/dL Phosphorus (2.5-5.0) mg/dL Magnesium (1.7-2.3) mg/dL Total Bilirubin (0.2-1.0) mg/dL AST (10-42) IU/L ALT (10-60) IU/L Alkaline Phosphatase (42-121) IU/L Total Protein (6.4-8.9) g/dL Albumin (3.2-5.5) g/dL Globulin (2.1-4.2) g/dL Albumin/Globulin Ratio (1.0-2.2) Lipase (11-82) U/L Urine Color Urine Clarity (CLEAR) Urine pH (5.0-7.5) PH Ur Specific [place] (1.002-1.030) Urine Protein (NEGATIVE) mg/dL Urine Glucose (UA) (NEGATIVE) mg/dL Urine Ketones (NEGATIVE) mg/dL Urine Occult Blood (NEGATIVE) Urine Nitrite (NEGATIVE) Urine Bilirubin (NEGATIVE) Urine Urobilinogen (NORMAL) E.U./dL Ur Leukocyte Esterase (NEGATIVE) Urine RBC (0-5) /HPF Urine WBC (0-3) /HPF Ur Squamous Epith Cells (<= Few) Urine Bacteria (None Seen) /HPF Ur Microscopic Review Urine Culture Comments Nasal Screen MRSA (PCR) (NEGATIVE) Urine Opiates Screen (NEGATIVE) Ur Buprenorphine Scrn (NEGATIVE) Ur Oxycodone Screen (NEGATIVE) Urine Methadone Screen (NEGATIVE) Ur Barbiturates Screen (NEGATIVE) Ur Tricyclics Screen (NEGATIVE) Ur Phencyclidine Scrn (NEGATIVE) Ur Amphetamine Screen (NEGATIVE) U Methamphetamines Scrn (NEGATIVE) U Benzodiazepines Scrn (NEGATIVE) Urine Cocaine Screen (NEGATIVE) U Cannabinoids Screen (NEGATIVE) Ur Drug Screen Comment Ethyl Alcohol mg/dL Assessment/Plan - Problem List (1) Alcohol withdrawal syndrome Qualifiers: Complication of substance-induced condition: with delirium Qualified Code(s): F10.931 - Alcohol use, unspecified with withdrawal delirium
[2024-02-17] MEDS: POTASSIUM CHLORIDE 20 MEQ TABLET PO SCH (09:05)
[2024-02-17] MEDS: LOSARTAN 50 MG TABLET PO SCH (09:05)
[2024-02-17] MEDS ORDERED: MULTIVITAMIN 10 ML, THIAMINE INJ 100 MG, FOLIC ACID INJ 1 MG in SODIUM CHLORIDE 0.9% 1,... IV SCH (12:00)
[2024-02-17 12:12] VITALS: O2SAT 98
--- NOTE | 2024-02-17 12:20 | Discharge Plan ---
Discharge Plan Problem Reviewed?: Yes Disposition: Home, Self Care Condition: Good Prescriptions: Losartan [Cozaar] 50 mg PO DAILY #30 tab chlordiazePOXIDE [Librium] 50 mg PO UD 3 Days #6 cap Naltrexone HCl 50 mg PO DAILY #30 tab Instruction Topics: Withdrawal Alcohol What Expect Health Concerns: You came into the hospital because you had problems with alcohol withdrawal after not having a drink for about 5 days. This is not the first time in your life you have had alcohol withdrawal. It is probably a good idea for you never to drink again. We had to give you medications to help with your alcohol withdrawal problem you are still having some symptoms but I think you are safe to go home. I have started you on a medication which she will taper for the next several days. That medication is called Librium to prevent seizures related to alcohol withdrawal and will help with the shakiness that you are having. I know that you will still have the desire to drink. The protective services social worker has given you some options for mental health treatment options for alcohol abuse. It is helpful for some people to attend Alcoholics Anonymous meetings. There is a website, aa.org, for alcoholics anonymous that will help you find these meetings. Also, I have prescribed a medicine that you can take once a day, this will help with alcohol cravings. Plan of Treatment: librium to help with withdrawal. naltrexone to help with cravings. do not drink alcohol!!! There are mental health resources in the community to help with alcohol addiction. AA is a free resource. No Smoking: If you smoke, Please STOP! Call for help. Follow-up with: RACQUEL FLEMING PA-C [Primary Care Provider] -
--- NOTE | 2024-02-17 13:08 | DISCHARGE SUMMARY ---
Discharge Summary Admit Date: 02/16/24 Discharge Date: 02/17/24 Discharging Provider: Chelita Day PA-C Primary Care Provider: Francisca Cornejo PA-C Code Status: Attempt Resuscitation Condition at Discharge: Good Discharge Disposition: 01 Home, Self Care - DIAGNOSES Admission Diagnoses: Alcohol withdrawal Hypertension Discharge Diagnoses with Status of Each Condition: 1) Alcohol withdrawal syndrome Conclusion/Plan: Tremulous with hallucinations. CIWA score in the emergency department up to 23. . This is very similar to his presentation in November 2022 after similar circumstances. Was given diazepam in the emergency department and his hallucinations decreased but he remained tremulous. He was alert and oriented for a period of hours but then regressed. He is admitted to the ICU for treatment of his CIWA scores with IV lorazepam. He did well for period of time and then became acutely agitated. Distractive measures failed and he required several hours of physical restraints. At the time the physical restraints were instituted he was also given 3 mg of Haldol and slept all night. Did not require any benzodiazepines or other sedatives overnight slept well woke up in the morning oriented x 3 with mild tremors. Repeat electrolyte panel in the morning showed resolution of his hyponatremia. He was prescribed Librium taper on discharge. He was given 50 mg of Librium several hours prior to discharge. Social work gave him community resources for alcoholism treatment, he was also educated regarding AA meetings. His CBC is overall unremarkable. Qualifiers: Complication of substance-induced condition: with delirium Qualified Code(s): F10.931 - Alcohol use, unspecified with withdrawal delirium (2) Hypertension Conclusion/Plan: patient is prescribed losartan 50 mg a day as an outpatient. He is not compliant with his medication. Blood pressure up to 150 systolic in the emergency department. He was discharged home with a prescription for losartan. (3) Hypomagnesemia Conclusion/Plan: 1.6 at admit. Repleted. Magnesium level rechecked 2.1 in the AM. (4) Tobacco abuse Conclusion/Plan: 07/15 ppd for years. no interest in quitting. Recommend that he received tobacco cessation counseling through his primary care provider. - HPI History of Present Illness: From admit H&P: 43-year-old male with a past history of alcohol withdrawal presents to the emergency department with same today. He has a history of drinking and has been terminated from several jobs for complaints related to his drinking. It has been 5 days since his last drink. He usually relapses when he goes to the [facility] and he has recently traveled home to see family in the [facility]. He is brought to the ED today by his aunt who he lives with. He recognizes that he is in alcohol withdrawal and is asking for help. He does not desire to continue to drink. He has no complaints other than tremulousness and hallucinations. - HOSPITAL COURSE Hospital Course: Admitted with acute alcohol withdrawal symptoms. Had not had a drink for a period of 5 days. Presented to the emergency department but it was obvious was going to require inpatient treatment. Was admitted to the ICU for IV lorazepam per protocol. Developed acute agitation required Haldol. Slept overnight and was observed until noon the next day with mild tremulousness requiring no benzodiazepines. Was discharged home on a Librium taper. Also prescribed naltrexone for cravings. Had previously been on losartan for hypertension this medication was renewed. White blood cell count was normal at the time of admission, 6.1 and on repeat, 5.2 x 1000. On the morning before discharge his white blood cell count was slightly decreased at 3.5 x 1000. It was recommended that he reestablish with primary care in the community and follow-up. - ALLERGIES Allergies/Adverse Reactions: Allergies Allergy/AdvReac Type Severity Reaction Status Date / Time No Known Drug Allergies Allergy Verified 02/16/24 10:53 - MEDICATIONS Home Medications: Ambulatory Orders Medication Instructions Recorded Confirmed Multivitamin,Therapeutic 1 each PO DAILY 02/16/24 02/16/24 [Thera-Tabs] Losartan [Cozaar] 50 mg PO DAILY #30 tab 02/17/24 Naltrexone HCl 50 mg PO DAILY #30 tab 02/17/24 chlordiazePOXIDE [Librium] 50 mg PO UD 3 Days #6 cap 02/17/24 - PHYSICAL EXAM AT DISCHARGE General Appearance: positive: Alert Eyes Bilateral: positive: Normal inspection ENT: positive: ENT inspection nml Neck: positive: Nml inspection Respiratory: positive: Chest non-tender, No respiratory distress, Breath sounds nml Cardiovascular: positive: Regular rate & rhythm Abdomen: positive: Non-tender Back: positive: Nml inspection Skin: positive: Color nml Extremities: positive: Non-tender, No pedal edema Neurologic/Psychiatric: positive: Oriented x3, Other (mild tremors. steady gait) - LABS Result Diagrams: 02/17/24 04:22 02/17/24 13:47 - FOLLOW UP Follow Up: PCP: Francisca Cornejo PA-C - TIME SPENT Time Spent in Discharge (Minutes): 45
[2024-02-17] MEDS: chlordiazePOXIDE 25 MG CAPSULE PO SCH (13:21)
[2024-02-17 14:10] VITALS: BP 106/77
[2024-02-17] MEDS ORDERED: FAMOTIDINE 20 MG TABLET PO SCH (21:00)
== END 2024-02-17 15:48 | disposition home or self-care (01) ==
LOC: ED 10:41 → ICU 12:21
PROVIDERS: ADMIT Physician Assistant Medical; ATTEND Physician Assistant Medical
DX: F10.231 Alcohol dependence with withdrawal delirium (principal); I10 Essential (primary) hypertension; E87.1 Hypo-osmolality and hyponatremia; E83.42 Hypomagnesemia; F17.200 Nicotine dependence, unspecified, uncomplicated; R45.1 Restlessness and agitation; F17.210 Nicotine dependence, cigarettes, uncomplicated; Z78.1 Physical restraint status; Z79.899 Other long term (current) drug therapy; Z91.148 Patient's other noncompliance with medication regimen for other reason
CPT/HCPCS: 36415; 80048; 80053; 80306; 81001; 82077; 82330; 83690; 83735; 84100; 84132; 85025; 85610; 85730; 87150; 96365; 96367; 96372; 96375; 96376; 99284; 99285; A9270; G0378; J2060; J3411; J7040; J8499; 81003; 87086